=== PATIENT | male | born 1955 | race Caucasian/White ===

== ENCOUNTER 2021-04-09 16:40 | Emergency (ER) | payer MEDICARE, OTHER ==
[~2021-04-09 16:40] MED LIST: CRESTOR20 MG PO
[2021-04-09 17:18] LABS: BASOPHIL 0.4 % (0-2); EOSINOPHIL 0.6 % (0-7); HCT 45.4 % (42.0-52.0); HGB 15.4 g/dl (13.2-18.0); LYMPHOCYTE 29.2 % (15-48); MCH 29.8 pg (25.0-31.0); MCHC 33.9 g/dL (32.0-36.0); MCV 87.8 fL (78.0-100.0); MONOCYTE 9.8 % (0-12); MPV 9.1 fL (6.0-9.5); NEUTROPHIL 59.7 % (41-80); NRBC 0; PLT 285 K/uL (150-400); RBC 5.17 M/uL (4.70-6.00); RDW 13.2 % (11.5-14.0); WBC 7.2 K/uL (4.0-10.5)
[2021-04-09 18:18] LABS: ALBUMIN 4.3 g/dL (3.4-5.0); BILIRUBIN - TOTAL 0.4 mg/dL (0.2-1.0); BUN/CREAT RATIO (CALC) 27.6 RATIO; CREATININE 1.05 mg/dL (0.67-1.17); GLOBULIN (CALCULATION) 3.4 g/dL; POTASSIUM 4.1 mmol/L (3.5-5.1); TOTAL PROTEIN 7.7 g/dL (6.4-8.2)
[2021-04-09] MEDS ORDERED: ANTIVERT25 MG PO (20:22)
[2021-04-09] MEDS ORDERED: ZOFRAN4 M1 PO (20:22)
== END 2021-04-10 11:12 | disposition home or self-care (01) ==
LOC: FER 16:40
PROVIDERS: Emergency Medicine
DX: R42 Dizziness and giddiness (principal)
CPT/HCPCS: 36415; 70450; 80053; 82550; 84484; 85025; 93005; J2405; J7040; Q9967

== ENCOUNTER → 2022-05-08 | Day surgery (SDC) | payer MEDICARE, OTHER ==
[~2022-05-08] VITALS: Ht 175.3 cm; Wt 68.9 kg
[~2022-05-08] MED LIST changes: +ANTIVERT25 MG PO; +NORCO 5-325 TA1 EACH PO; +ZOFRAN4 M1 PO
[2022-05-08 09:02] LABS: HCT 47.2 % (42.0-52.0); HGB 15.8 g/dl (13.2-18.0); MCH 29.9 pg (25.0-31.0); MCHC 33.5 g/dL (32.0-36.0); MCV 89.2 fL (78.0-100.0); MPV 9.2 fL (6.0-9.5); RBC 5.29 M/uL (4.70-6.00); RDW 13.4 % (11.5-14.0); WBC 5.2 K/uL (4.0-10.5)
[2022-05-08 09:15] LABS: ALBUMIN 3.9 g/dL (3.4-5.0); BILIRUBIN - TOTAL 0.6 mg/dL (0.2-1.0); BUN/CREAT RATIO (CALC) 21.7 RATIO; CREATININE 0.92 mg/dL (0.67-1.17); GLOBULIN (CALCULATION) 3.5 g/dL; TOTAL PROTEIN 7.4 g/dL (6.4-8.2)
== END | disposition home or self-care (01) ==
LOC: FAS 08:09
PROVIDERS: Surgery
DX: R19.4 Change in bowel habit (principal); K64.1 Second degree hemorrhoids; K58.9 Irritable bowel syndrome, unspecified; K63.89 Other specified diseases of intestine; Z80.0 Family history of malignant neoplasm of digestive organs
CPT/HCPCS: 36415; 80053; J1100; J1610; J2704; J7120